=== PATIENT | female | born 1990 | race Caucasian/White ===

== ENCOUNTER → 2023-07-07 | Outpatient (CLI) | payer OTHER | LOC: LAB 17:38 | DX: Z00.00 Encounter for general adult medical examination without abnormal findings (principal); Z11.4 Encounter for screening for human immunodeficiency virus [HIV]; Z11.59 Encounter for screening for other viral diseases; Z11.9 Encounter for screening for infectious and parasitic diseases, unspecified; Z11.3 Encounter for screening for infections with a predominantly sexual mode of transmission; Z13.21 Encounter for screening for nutritional disorder; Z11.8 Encounter for screening for other infectious and parasitic diseases; Z13.29 Encounter for screening for other suspected endocrine disorder ==

== ENCOUNTER → 2024-01-14 | Outpatient (CLI) | payer OTHER ==
[2024-01-14 18:09] LABS: BASO # 0.04 K/mm3 (0.02-0.10); EOS # 0.04 K/mm3 (0.04-0.40); EOS % 0.8 % (1.0-5.0); HEMATOCRIT 42.3 % (37.0-47.0); HEMOGLOBIN 14.6 g/dL (12.5-16.0); LYMPH# 1.85 K/mm3 (1.50-4.00); MEAN CELL VOLUME 89 fl (78-100); MEAN CORPUSCULAR HEMOGLOBIN 31 pg (27-31); MEAN CORPUSCULAR HGB CONC 35 g/dL (33-37); MEAN PLATELET VOLUME 9.4 fl (7.4-10.4); MONO # 0.51 K/mm3 (0.20-0.80); NEU # 2.74 K/mm3 (1.40-6.50); PLATELET COUNT 250 K/mm3 (130-400); RED BLOOD COUNT 4.75 M/mm3 (4.10-5.30); RED CELL DISTRIBUTION WIDTH 11.2 % (11.5-14.5); WHITE BLOOD COUNT 5.2 K/mm3 (4.8-10.8)
[2024-01-14 18:13] LABS: ALBUMIN 4.7 g/dL (3.5-5.0)
[2024-01-14 18:14] LABS: SODIUM 138 mmol/L (136-145)
[2024-01-14 18:15] LABS: CALCIUM 10.2 mg/dL (8.3-10.5)
[2024-01-14 18:16] LABS: GLUCOSE 87 mg/dL (65-105); TOTAL PROTEIN 7.9 g/dL (6.4-8.3)
[2024-01-14 18:17] LABS: CARBON DIOXIDE 24 mmol/L (22-29)
[2024-01-14 18:18] LABS: TOTAL BILIRUBIN 0.4 mg/dL (0.2-1.2)
[2024-01-14 18:21] LABS: AST-SGOT 41 U/L (5-34)
[2024-01-14 18:23] LABS: ALT/SGPT 24 U/L (0-55)
[2024-01-14 18:31] LABS: D-DIMER 0.2 mg/L FEU (0.15-0.50)
[2024-01-14 18:32] LABS: TROPONIN-I < 0.030 ng/mL (0.00-0.033)
== END ==
LOC: LAB 17:47
PROVIDERS: Family Medicine
DX: R07.9 Chest pain, unspecified (principal)